=== PATIENT | male | born 1950 | race Two or more races ===

== ENCOUNTER 2023-06-22 11:27 | Emergency (ER) | payer MEDICARE, OTHER ==
[~2023-06-22] VITALS: Ht 170.2 cm; Wt 5.0 kg
[2023-06-22 12:36] LABS: Urine Bacteria NONE SEEN /hpf (None Seen); Urine Blood TRACE /uL (Negative); Urine Clarity Clear (Clear); Urine Color Yellow (Yellow); Urine Hyaline Cast FEW /lpf (0 - 2); Urine Mucus FEW (None Seen); Urine Protein, UAD Negative (Negative); Urine Specific Gravity 1.023 (1.001-1.035); Urine Urobilinogen Normal (Negative); Urine WBC 2 /hpf (0 - 3); Urine pH 5.5 (5.0-8.0)
[2023-06-22 13:04] LABS: Basophils # (auto) 0.1 10 ^3/uL (0-0.2); Basophils % (auto) 1.4 % (0.0-2.0); Eosinophils # (auto) 0.2 10 ^3/uL (0-0.8); Eosinophils % (auto) 4.4 % (0.0-7.0); Hematocrit 47.6 % (41.0-53.0); Hemoglobin 15.9 g/dL (13.5-17.5); Lymphocytes # (auto) 1.6 10 ^3/uL (0.4-5.4); Lymphocytes % (auto) 29.7 % (10.0-50.0); Mean Corpuscular Hemoglobin 29.2 pg (28.0-32.0); Mean Corpuscular Hgb Conc. 33.5 g/dL (32.0-36.0); Mean Corpuscular Volume 87.2 fL (80.0-100.0); Monocytes # (auto) 0.4 10 ^3/uL (0-1.3); Monocytes % (auto) 6.7 % (0.0-12.0); Neutrophils # (auto) 3.2 10 ^3/uL (1.6-8.6); Neutrophils % (auto) 57.8 % (37.0-80.0); Nucleated Red Blood Cells % 0.4 %; Red Blood Cells 5.45 10^6/uL (4.5-5.90); Red Cell Distribution Width 14.2 % (11.8-14.3); White Blood Cell 5.5 10^3/uL (4.4-10.8)
[2023-06-22 13:21] LABS: Alanine Aminotransferase 52 U/L (7-40); Albumin 4.3 g/dL (3.2-4.8); Alkaline Phosphatase 73 U/L (46-116); Anion Gap 4 (5-15); Aspartate Aminotransferase 35 U/L (13-40); BUN/Creatinine Ratio 17.1 (10.0-20.0); Bilirubin, Total 0.8 mg/dL (0.2-1.0); Blood Urea Nitrogen 18 mg/dL (9-23); Calcium 8.9 mg/dL (8.5-10.1); Carbon Dioxide 30 mmol/L (20-30); Chloride 109 mmol/L (98-107); Glucose 96 mg/dL (74-106); Sodium 143 mmol/L (136-145); Total Protein 6.4 g/dL (5.7-8.2)
[2023-06-22 15:17] VITALS: BP 153/96; PULSE 77; RESP 18; TEMP 98.4; O2SAT 96
== END 2023-06-22 15:18 | disposition home or self-care (01) ==
LOC: ER 11:27 → EDBD 11:27 → ER 15:18
DX: R42 Dizziness and giddiness (principal); R55 Syncope and collapse; R51.9 Headache, unspecified
CPT/HCPCS: 36415; 70450; 80053; 81001; 84484; 85025

== ENCOUNTER → 2023-06-29 | Outpatient (CLI) | payer MEDICARE, OTHER ==
[2023-06-29 13:02] LABS: Urine Bacteria None Seen /hpf (None Seen)
[2023-06-29 13:15] LABS: Urine Blood 1+ /uL (Negative); Urine Clarity Clear (Clear); Urine Color Yellow (Yellow); Urine Mucus FEW (None Seen); Urine Protein, UAD TRACE (Negative); Urine Specific Gravity 1.025 (1.001-1.035); Urine Urobilinogen Normal (Negative); Urine WBC <1 /hpf (0 - 3)
[2023-06-29 14:10] LABS: Albumin 4.3 g/dL (3.2-4.8); Bilirubin, Direct 0.4 mg/dL (<0.3)
[2023-06-29 14:11] LABS: Bilirubin, Total 1.2 mg/dL (0.2-1.0); Total Protein 6.9 g/dL (5.7-8.2)
[2023-06-29 14:28] LABS: Hepatitis B Surface Antigen Negative (Negative)
[2023-06-29 14:49] LABS: Hepatitis A Ab IgM Negative; Hepatitis B Core IgM Negative
[2023-06-29 14:50] LABS: Hepatitis C Antibody Negative (Negative)
== END | disposition home or self-care (01) ==
LOC: LAB 12:47
PROVIDERS: ATTEND Internal Medicine
DX: R79.89 Other specified abnormal findings of blood chemistry (principal); R42 Dizziness and giddiness
CPT/HCPCS: 36415; 80074; 80076; 81001

== ENCOUNTER → 2023-08-15 | Outpatient (CLI) | payer MEDICARE, OTHER ==
[2023-08-15 11:21] LABS: Urine Bacteria None Seen /hpf (None Seen)
[2023-08-15 12:25] LABS: Urine Blood 1+ /uL (Negative); Urine Clarity Clear (Clear); Urine Color Yellow (Yellow); Urine Mucus FEW (None Seen); Urine Protein, UAD TRACE (Negative); Urine Specific Gravity 1.025 (1.001-1.035); Urine Urobilinogen Normal (Negative); Urine WBC 1 /hpf (0 - 3); Urine pH 5.5 (5.0-9.0)
== END | disposition home or self-care (01) ==
LOC: LAB 11:16
PROVIDERS: ATTEND Internal Medicine
DX: N28.1 Cyst of kidney, acquired (principal)
CPT/HCPCS: 81001

== ENCOUNTER → 2024-01-02 | Outpatient (CLI) | payer MEDICARE, OTHER ==
[2024-01-02 14:44] LABS: Basophils # (auto) 0 10 ^3/uL (0-0.2); Basophils % (auto) 0.9 % (0.0-2.0); Eosinophils # (auto) 0.3 10 ^3/uL (0-0.8); Eosinophils % (auto) 5.5 % (0.0-7.0); Hemoglobin 16.7 g/dL (13.5-17.5); Lymphocytes # (auto) 1.5 10 ^3/uL (0.4-5.4); Lymphocytes % (auto) 26.7 % (10.0-50.0); Mean Corpuscular Hemoglobin 30.1 pg (28.0-32.0); Mean Corpuscular Hgb Conc. 34.1 g/dL (32.0-36.0); Mean Corpuscular Volume 88.1 fL (80.0-100.0); Monocytes # (auto) 0.4 10 ^3/uL (0-1.3); Monocytes % (auto) 6.7 % (0.0-12.0); Neutrophils # (auto) 3.5 10 ^3/uL (1.6-8.6); Neutrophils % (auto) 60.2 % (37.0-80.0); Nucleated Red Blood Cells % 0.1 %; Platelet Count (auto) 146 10^3/uL (140-450); Red Blood Cells 5.56 10^6/uL (4.5-5.90); Red Cell Distribution Width 13.6 % (11.8-14.3); White Blood Cell 5.7 10^3/uL (4.4-10.8)
[2024-01-02 15:10] LABS: Prostate Specific Antigen 2.38 ng/mL (0.0-4.0)
[2024-01-02 15:11] LABS: Alkaline Phosphatase 70 U/L (46-116)
[2024-01-02 15:12] LABS: Alanine Aminotransferase 28 U/L (7-40); Albumin 4.4 g/dL (3.2-4.8); Anion Gap 8 (5-15); Aspartate Aminotransferase 21 U/L (13-40); BUN/Creatinine Ratio 15.9 (10.0-20.0); Bilirubin, Total 1.2 mg/dL (0.2-1.0); Blood Urea Nitrogen 17 mg/dL (9-23); Carbon Dioxide 25 mmol/L (20-31); Chloride 107 mmol/L (98-107); Glucose 128 mg/dL (74-106); Potassium 3.9 mmol/L (3.5-5.1); Sodium 140 mmol/L (136-145); Total Protein 6.9 g/dL (5.7-8.2)
== END | disposition home or self-care (01) ==
LOC: LAB 14:29
PROVIDERS: ATTEND Internal Medicine
DX: E78.5 Hyperlipidemia, unspecified (principal); R31.29 Other microscopic hematuria; K76.0 Fatty (change of) liver, not elsewhere classified; I51.89 Other ill-defined heart diseases; Z79.899 Other long term (current) drug therapy
CPT/HCPCS: 36415; 80053; 82306; 82607; 84153; 85025

== ENCOUNTER 2024-10-14 09:41 | Outpatient (CLI) | payer MEDICARE, OTHER ==
[2024-10-14 12:02] LABS: Alanine Aminotransferase 33 U/L (7-40); Albumin 4.1 g/dL (3.2-4.8); Alkaline Phosphatase 66 U/L (46-116); Anion Gap 7 (5-15); BUN/Creatinine Ratio 15.7 (10.0-20.0); Bilirubin, Total 0.9 mg/dL (0.2-1.0); Blood Urea Nitrogen 17 mg/dL (9-23); Calcium 9.2 mg/dL (8.7-10.4); Carbon Dioxide 28 mmol/L (20-31); Cholesterol 122 mg/dL (< 200); Glucose 97 mg/dL (74-106); HDL Cholesterol 40 mg/dL (40-59); Potassium 4.4 mmol/L (3.5-5.1); Sodium 142 mmol/L (136-145); Total Protein 6.6 g/dL (5.7-8.2); Triglycerides 78 mg/dL (< 150)
[2024-10-14 12:03] LABS: Chloride 107 mmol/L (98-107)
== END 2024-10-14 17:00 | disposition home or self-care (01) ==
LOC: LAB 09:41
PROVIDERS: ATTEND Internal Medicine
DX: N18.2 Chronic kidney disease, stage 2 (mild) (principal); E78.5 Hyperlipidemia, unspecified; K76.0 Fatty (change of) liver, not elsewhere classified; L40.9 Psoriasis, unspecified; Z12.11 Encounter for screening for malignant neoplasm of colon
CPT/HCPCS: 36415; 80053; 80061; 83036

== ENCOUNTER 2024-10-21 09:15 | Outpatient (CLI) | payer MEDICARE, OTHER | END 2024-10-21 17:00 | disposition home or self-care (01) | LOC: LAB 09:15 | PROVIDERS: ATTEND Internal Medicine | DX: N18.2 Chronic kidney disease, stage 2 (mild) (principal); E78.5 Hyperlipidemia, unspecified; Z12.11 Encounter for screening for malignant neoplasm of colon | CPT/HCPCS: 82270 ==

== ENCOUNTER 2024-11-20 10:47 | Inpatient (IN) | payer MEDICARE, OTHER ==
[~2024-11-20] VITALS: Ht 170.2 cm; Wt 74.5 kg
--- NOTE | 2024-11-20 11:04 | ECG ---
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
--- NOTE | 2024-11-20 12:15 | ED.PDOC ---
HPI (NEURO) HPI Comments This is a 73-year-old male with past medical history of BPH and kidney disease came to the hospital due to dizziness. Per patient he has dizziness since six- month which has worsened since 2 weeks. He describes the dizziness as spinning syndrome, and get worse when he is standing from lying or sitting position. Dizziness also get worse when turning head to the side. He also reports mild headache, blurry vision and right flank pain. He denies loss of consciousness, fall history, head trauma history, chest pain, or shortness of breaths. Hyder-Hallpike maneuver was performed bilaterally at the bedside, the patient has subsequently got mild dizziness which did not improved upon Tyrell maneuver. No nystagmus observed during maneuver. Home medication: Flomax and atorvastatin Chief Complaint: Headache Time Seen by MD: 11:28 Primary Care Provider: TARUN Mode of Arrival: Ambulatory Past Medical History PAST MEDICAL HISTORY: TIA Past Medical History (Other): BPH and kidney cyst Surgical History: Denies all surgeries Family History Family History: Unknown Social History Smoker: Non-Smoker Alcohol: Denies ETOH Use Drugs: Denies Drug Use Lives In: Home Constitutional: denies: chills, diaphoresis, fatigue, fever, malaise, sweats, weakness, others EENTM: reports: blurred vision; denies: double vision, ear bleeding, ear discharge, ear drainage, ear pain, ear ringing, eye pain, eye redness, hearing loss, mouth pain, mouth swelling, nasal discharge, nose bleeding, nose jeanne estion, nose pain, photophobia, tearing, throat pain, throat swelling, voice changes, others Respiratory: denies: cough, hemoptysis, orthopnea, SOB at rest, shortness of breath, SOB with excertion, stridor, wheezing, others Cardiovascular: denies: chest pain, dizzy spells, diaphoresis, Dyspnea on exertion, edema, irregular heart beat, left arm pain, lightheadedness, palpitations, PND, syncope, others Gastrointestinal: denies: abdomen distended, abdominal pain, blood streaked bowels, constipated, diarrhea, dysphagia, difficulty swallowing, hematemesis, melena, nausea, poor appetite, poor fluid intake, rectal bleeding, rectal pain, vomiting, others Genitourinary: denies: burning, dysuria, flank pain, frequency, hematuria, incontinence, penile discharge, penile sore, pain, testicle pain, testicle swe lling, urgency, others Neurological: reports: dizziness, headache; denies: fainting, left sided numbness, left sided weakness, numbness, paresthesia, pre-existing deficit, right sided numbness, right sided weakness, seizure, speech problems, tingling, tremors, weakness, others Musculoskeletal: reports: back pain; denies: gout, joint pain, joint swelling, muscle pain, muscle stiffness, neck pain, others Integumetry: denies: bruises, change in color, change in hair/nails, dryness, laceration, lesions, lumps, rash, wounds, others Allergic/Immunocompromised: denies: Difficulty Healing, Frequent Infections, Hives, Itching, others Hematologic/Lymphatic: denies: anemia, blood clots, easy bleeding, easy bruising, swollen glands, others Endocrine: denies: excessive hunger, excessive sweating, excessive thirst, excessive urination, flushing, intolerance to cold, intolerance to heat, unexplained weight gain, unexplained weight loss, others Psychiatric: denies: anxiety, bipolar disorder, depression, hopeless, panic disorder, schizophrenia, sleepless, suicidal, others Physical Exam General Appearance: No Apparent Distress, Normal HEENT: Normal ENT Inspection, Pharynx Normal, TMs Normal Neck: Full Range of Motion, Non-Tender, Normal, Normal Inspection Respiratory: Chest Non-Tender, Lungs Clear, No Accessory Muscle Use, No Respiratory Distress, Normal Breath Sounds Cardiovascular: No Edema, No JVD, No Murmur, No Gallop, Normal Peripheral Pulses, Regular Rate/Rhythm Breast Exam: Deferred Gastrointestinal: No Organomegaly, Non Tender, No Pulsatile Mass, Normal Bowel Sounds, Soft Genitalia: Deferred Pelvic: Deferred Rectal: Deferred Extremities: No calf tenderness, Normal capillary refill, Normal inspection, Normal range of motion, Non-tender, No pedal edema Neurologic: Alert, 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 Was a procedure done?: No Sedation Sedation?: No Informed consent obtained: No X-Ray, Labs, Meds, VS Vital Signs Date Time Temp Pulse Resp B/P (MAP) Pulse Ox O2 Delivery O2 Flow Rate FiO2 11/20/24 12:32 97.8 73 16 116/71 (86) 96 97.8 11/20/24 12:32 73 16 96 Room Air 11/20/24 10:58 63 11/20/24 10:49 97.6 78 18 128/77 95 97.6 Lab Test 11/20/24 12:24 Range/Units White Blood Count 4.9 4.4-10.8 10^3/uL Red Blood Count 5.47 4.5-5.90 10^6/uL Hemoglobin 16.2 13.5-17.5 g/dL Hematocrit 47.4 41.0-53.0 % Mean Corpuscular Volume 86.6 80.0-100.0 fL Mean Corpuscular Hemoglobin 29.6 28.0-32.0 pg Mean Corpuscular Hemoglobin Concent 34.2 32.0-36.0 g/dL Red Cell Distribution Width 14.0 11.8-14.3 % Platelet Count 154 140-450 10^3/uL Mean Platelet Volume 8.4 6.9-10.8 fL Neutrophils (%) (Auto) 64.9 37.0-80.0 % Lymphocytes (%) (Auto) 24.4 10.0-50.0 % Monocytes (%) (Auto) 6.9 0.0-12.0 % Eosinophils (%) (Auto) 3.1 0.0-7.0 % Basophils (%) (Auto) 0.7 0.0-2.0 % Neutrophils # (Auto) 3.2 1.6-8.6 10 ^3/uL Lymphocytes # (Auto) 1.2 0.4-5.4 10 ^3/uL Monocytes # (Auto) 0.3 0-1.3 10 ^3/uL Eosinophils # (Auto) 0.2 0-0.8 10 ^3/uL Basophils # (Auto) 0 0-0.2 10 ^3/uL Nucleated Red Blood Cells 0.2 % Sodium Level 142 136-145 mmol/L Potassium Level 4.2 3.5-5.1 mmol/L Chloride Level 108 H 98-107 mmol/L Carbon Dioxide Level 27 20-31 mmol/L Anion Gap 7 5-15 Blood Urea Nitrogen 16 9-23 mg/dL Creatinine 1.06 0.700-1.30 mg/dL Glomerular Filtration Rate Calc 74 >90 mL/min BUN/Creatinine Ratio 15.1 10.0-20.0 Serum Glucose 94 74-106 mg/dL Calcium Level 8.8 8.7-10.4 mg/dL Total Bilirubin 0.9 0.2-1.0 mg/dL Aspartate Amino Transferase (AST) 32 13-40 U/L Alanine Aminotransferase (ALT) 65 H 7-40 U/L Alkaline Phosphatase 69 46-116 U/L Total Protein 6.7 5.7-8.2 g/dL Albumin 4.4 3.2-4.8 g/dL Current Medications Medications (Trade) Dose Ordered Sig/Jill Route Start Time Stop Time Status Last Admin Meclizine HCl (Antivert Tablet) 25 mg ONCE ONCE PO 11/20/24 12:00 11/20/24 12:04 DC 11/20/24 12:25 Ibuprofen (Motrin Tablet) 400 mg ONCE ONCE PO 11/20/24 12:00 11/20/24 12:04 DC 11/20/24 12:25 X-Ray, Labs, Meds, VS Comment CT scan shows,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 Patient was given meclizine Patient is feeling a little better but still complained of dizziness. The patient will be admitted for further workup and possible MRI. Time of 1ST Reevaluation: 12:00 Reevaluation 1ST: Unchanged Time of 2ND Reevaluation: 15:50 Reevaluation 2ND: Unchanged Patient Education/Counseling: Diagnosis, Treatment, Prognosis, Need For Follow Up, Other Family Education/Counseling: Diagnosis, Treatment, Prognosis, Need For Follow Up, Other Departure 1 Departure Time of Disposition: 15:55 Impression: Primary Impression: Autonomic dysfunction Additional Impression: BPPV (benign paroxysmal positional vertigo) Disposition: 09 ADMITTED INPATIENT Condition: Guarded Critical Care Note Critical Care Time?: No Stability Stability form required: No Heart Score Heart Score: Heart Score Response (Comments) Value History N/A 0 EKG Normal 0 Age N/A 0 Risk Factors N/A 0 Troponin N/A 0 Total 0 MATT CRANDALL RESMERLE Nov 20, 2024 12:15
[2024-11-20] MEDS: MECLIZINE HCL 25 MG TAB PO ONE (12:25)
[2024-11-20] MEDS: IBUPROFEN 400 MG TAB PO ONE (12:25)
[2024-11-20 12:38] LABS: Hematocrit 47.4 % (41.0-53.0); Hemoglobin 16.2 g/dL (13.5-17.5); Mean Corpuscular Hemoglobin 29.6 pg (28.0-32.0); Mean Corpuscular Volume 86.6 fL (80.0-100.0); Nucleated Red Blood Cells % 0.2 %
--- NOTE | 2024-11-20 12:43 | DVH ---
EXAM: CT HEAD WITHOUT CONTRAST INDICATION: dizziness TECHNIQUE: CT of the head without intravenous contrast. Coronal and sagittal reformatted images are s ubmitted. Radiation Dose : 1. Head: CT Dose: CTDI volume is 55.8 mGy. Dose-length product is 1098.7 mGy*cm The dose indicators for CT are the volume Computed Tomography (CT) Dose Index (CTDIvol) and the Dose Length Product (DLP), and are measured in units of mGy and mGy-cm, respectively. These indicators are not patient dose, but values generated from the CT scanner acquisition factors. The report includes radiation exposure data for exposures received during this examination. All CT scans at this medical facility are performed using dose modulation techniques as appropriate to a performed exam including the following: Automated exposure control was utilized; adjustment of the MA and/or KV according to patient size; and use of iterative reconstruction technique. COMPARISON: CT HEAD WITHOUT CONTRAST on DOS: 06/22/23 FINDINGS: There is no evidence of acute intracranial hemorrhage, extra-axial collection, mass effect, midline s hift, herniation or hydrocephalus. Age-indeterminate lacunar infarcts in the left basal ganglia and thalamus. The ventricles, sulci and cisterns are age appropriate. The regan-white differentiation is intact. Mucosal thickening in the maxillary sinuses. Mastoid air cells are clear. No depressed calvarial fracture. The surrounding soft tissues are unremarkable. IMPRESSION: 1. 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 These may be chronic. If there is clinical concern for acute infarct, brain MRI recommended without intravenous contrast. 2. No evidence of acute hemorrhage or mass effect. HS:Y
[2024-11-20 12:52] LABS: Alanine Aminotransferase 65 U/L (7-40); Albumin 4.4 g/dL (3.2-4.8); Alkaline Phosphatase 69 U/L (46-116); Anion Gap 7 (5-15); BUN/Creatinine Ratio 15.1 (10.0-20.0); Bilirubin, Total 0.9 mg/dL (0.2-1.0); Blood Urea Nitrogen 16 mg/dL (9-23); Calcium 8.8 mg/dL (8.7-10.4); Carbon Dioxide 27 mmol/L (20-31); Chloride 108 mmol/L (98-107); Glucose 94 mg/dL (74-106); Potassium 4.2 mmol/L (3.5-5.1); Sodium 142 mmol/L (136-145); Total Protein 6.7 g/dL (5.7-8.2)
[2024-11-20] MEDS ORDERED: MECLIZINE HCL 25 MG TAB PO PRN (19:30)
[2024-11-20] MEDS ORDERED: ACETAMINOPHEN 325 MG TAB PO PRN (19:30)
[2024-11-20] MEDS ORDERED: ONDANSETRON HCL 4 MG/2 ML VIAL IV PRN (19:30)
[2024-11-20 22:00] VITALS: BP 134/79; PULSE 55; RESP 18; TEMP 98.5; O2SAT 97
[2024-11-20 22:09] VITALS: BP 134/79; PULSE 55; RESP 18; TEMP 98.5; O2SAT 97
--- NOTE | 2024-11-20 22:13 | DVHHP2 ---
History of Present Illness Reason for Visit: Dizziness History of Present Illness 73-year-old male presents for evaluation of dizziness. Patient endorses a three-month history of intermittent dizziness. He states that over the past three days it has become more constant with associated blurred vision. Denies headache. No cardiac or respiratory complaints. Past Medical History TIA, BPH Past Surgical History Denies Family History Noncontributory Smoke: No ALCOHOL: none Drugs: None Lives: with Family Review of Systems Review of Systems Review of systems are currently negative otherwise addressed in HPI. Allergies: Coded Allergies: NO KNOWN ALLERGIES (Unverified , 06/22/23) Medications Current Medications Medications Dose Ordered Sig/Jill Route Start Time Stop Time Status Last Admin Dose Admin Meclizine HCl 25 mg Q6HPRN PRN PO 11/20/24 19:30 Ondansetron HCl 4 mg Q4HP PRN IV 11/20/24 19:30 Enoxaparin Sodium 40 mg DAILY SC 11/21/24 10:00 Acetaminophen 650 mg Q6HP PRN PO 11/20/24 19:30 Exam Vital Signs Vital Signs Date Time Temp Pulse Resp B/P (MAP) Pulse Ox O2 Delivery O2 Flow Rate FiO2 11/20/24 21:31 97.4 60 18 138/77 (97) 98 97.4 11/20/24 12:32 Room Air Exam Gen: 73-year-old male in mild distress Skin: Warm, dry, normal color and texture, no rash. HEENT: Normocephalic atraumatic, mucous membranes moist and pink. Neck: Cervical and supraclavicular nodes normal without enlargement, trachea is midline, thyroid gland is normal without masses. Pulmonary: Clear to auscultation and percussion bilaterally. Cardiac: Regular rate and rhythm. No murmur Abdomen: Soft, nontender, nondistended, bowel sounds present all 4 quadrants, no guarding, no rigidity, no organomegaly. Extremities: No cyanosis, clubbing, no edema Neuro: Cranial nerves II through XII grossly intact, normal affect and speech, no focal motor deficits. Labs/Xrays ORDERING PHYSICIAN: MATT CRANDALL PROCEDURE(s): HWOCT - HEAD WITHOUT CONTRAST REASON: dizziness ORDER NUMBER(s): [id number], ACCESSION NUMBER(s): [id number] EXAM: CT HEAD WITHOUT CONTRAST INDICATION: dizziness TECHNIQUE: CT of the head without intravenous contrast. Coronal and sagittal reformatted images are submitted. Radiation Dose : 1. Head: CT Dose: CTDI volume is 55.8 mGy. Dose-length product is 1098.7 mGy*cm The dose indicators for CT are the volume Computed Tomography (CT) Dose Index (CTDIvol) and the Dose Length Product (DLP), and are measured in units of mGy and mGy-cm, respectively. These indicators are not patient dose, but values generated from the CT scanner acquisition factors. The report includes radiation exposure data for exposures received during this examination. All CT scans at this medical facility are performed using dose modulation techniques as appropriate to a performed exam including the following: Automated exposure control was utilized; adjustment of the MA and/or KV according to patient size; and use of iterative reconstruction technique. COMPARISON: CT HEAD WITHOUT CONTRAST on DOS: 06/22/23 FINDINGS: There is no evidence of acute intracranial hemorrhage, extra-axial collection, mass effect, midline shift, herniation or hydrocephalus. Age-indeterminate lacunar infarcts in the left basal ganglia and thalamus. The ventricles, sulci and cisterns are age appropriate. The regan-white differentiation is intact. Mucosal thickening in the maxillary sinuses. Mastoid air cells are clear. No depressed calvarial fracture. The surrounding soft tissues are unremarkable. IMPRESSION: 1. 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 These may be chronic. If there is clinical concern for acute infarct, brain MRI recommended without intravenous contrast. 2. No evidence of acute hemorrhage or mass effect. HS:Y Labs Test 11/20/24 12:24 Range/Units White Blood Count 4.9 4.4-10.8 10^3/uL Red Blood Count 5.47 4.5-5.90 10^6/uL Hemoglobin 16.2 13.5-17.5 g/dL Hematocrit 47.4 41.0-53.0 % Mean Corpuscular Volume 86.6 80.0-100.0 fL Mean Corpuscular Hemoglobin 29.6 28.0-32.0 pg Mean Corpuscular Hemoglobin Concent 34.2 32.0-36.0 g/dL Red Cell Distribution Width 14.0 11.8-14.3 % Platelet Count 154 140-450 10^3/uL Mean Platelet Volume 8.4 6.9-10.8 fL Neutrophils (%) (Auto) 64.9 37.0-80.0 % Lymphocytes (%) (Auto) 24.4 10.0-50.0 % Monocytes (%) (Auto) 6.9 0.0-12.0 % Eosinophils (%) (Auto) 3.1 0.0-7.0 % Basophils (%) (Auto) 0.7 0.0-2.0 % Neutrophils # (Auto) 3.2 1.6-8.6 10 ^3/uL Lymphocytes # (Auto) 1.2 0.4-5.4 10 ^3/uL Monocytes # (Auto) 0.3 0-1.3 10 ^3/uL Eosinophils # (Auto) 0.2 0-0.8 10 ^3/uL Basophils # (Auto) 0 0-0.2 10 ^3/uL Nucleated Red Blood Cells 0.2 % Sodium Level 142 136-145 mmol/L Potassium Level 4.2 3.5-5.1 mmol/L Chloride Level 108 H 98-107 mmol/L Carbon Dioxide Level 27 20-31 mmol/L Anion Gap 7 5-15 Blood Urea Nitrogen 16 9-23 mg/dL Creatinine 1.06 0.700-1.30 mg/dL Glomerular Filtration Rate Calc 74 >90 mL/min BUN/Creatinine Ratio 15.1 10.0-20.0 Serum Glucose 94 74-106 mg/dL Calcium Level 8.8 8.7-10.4 mg/dL Total Bilirubin 0.9 0.2-1.0 mg/dL Aspartate Amino Transferase (AST) 32 13-40 U/L Alanine Aminotransferase (ALT) 65 H 7-40 U/L Alkaline Phosphatase 69 46-116 U/L Total Protein 6.7 5.7-8.2 g/dL Albumin 4.4 3.2-4.8 g/dL SEPSIS Sepsis Screen Date sepsis recognized/suspect: Nov 20, 2024 Time Sepsis recognized/suspect: 2148 Recent Procedure: No On Antibiotic Therapy: No Respiratory Rate >20: No Heart Rate >90: No Temp<36 C (96.8 F) or >38.3 C: No SBP <90 or MAP <65 mmHG: No New Acute Mental Status Change: No Is the patient on CPAP, BIPAP,: No Physician Orders Meclizine Tablet (Antivert Tablet) (11/20/24 19:30) Brain Head Wo Contrast (11/20/24 19:21) Urinalysis (11/20/24 19:21) Admit (11/20/24 19:21) Ondansetron Hcl (Zofran) (11/20/24 19:30) Enoxaparin Sodium (Lovenox) (11/21/24 10:00) Cardiac Diet-2gna,Lofat,Lochol (11/21/24 Breakfast) Condition: Stable (11/20/24 19:21) Acetaminophen Tablet (Tylenol Tablet) (11/20/24 19:30) Bedrest With Bathroom Privileg (11/20/24 19:21) Vital Signs Date Time Temp Pulse Resp B/P (MAP) Pulse Ox O2 Delivery O2 Flow Rate FiO2 11/20/24 21:31 97.4 60 18 138/77 (97) 98 97.4 11/20/24 18:18 97.8 71 16 115/72 (86) 94 97.8 Laboratory Tests Test 11/20/24 12:24 White Blood Count 4.9 10^3/uL (4.4-10.8) Medications Medications Dose Ordered Sig/Jill Route Start Time Stop Time Status Last Admin Dose Admin Ibuprofen 400 mg ONCE ONCE PO 11/20/24 12:00 11/20/24 12:04 DC 11/20/24 12:25 400 MG Meclizine HCl 25 mg ONCE ONCE PO 11/20/24 12:00 11/20/24 12:04 DC 11/20/24 12:25 25 MG Assessment/Plan Assessment/Plan Assessment Dizziness Abnormal CT finding, rule out CVA History of TIA Plan Admit the patient to [facility] to the hospitalist MRI of the brain pending Meclizine trial Continue treatment per orders. Plan discussed with: Patient My Orders Orders - SANTA GONZALEZ Procedure Category Date Status Time Meclizine Tablet PHA 11/20/24 In Process (Antivert Tablet) 19:30 Brain Head Wo Contrast MRI 11/20/24 Logged 19:21 Urinalysis LAB 11/20/24 Logged 19:21 Admit ADMIT 11/20/24 Transmitted 19:21 Ondansetron Hcl PHA 11/20/24 In Process (Zofran) 19:30 Enoxaparin Sodium PHA 11/21/24 In Process (Lovenox) 10:00 Cardiac DIET 11/21/24 Transmitted Diet-2gna,Lofat,Lochol Breakfast Condition: Stable REBECCA 11/20/24 In Process 19:21 Acetaminophen Tablet PHA 11/20/24 In Process (Tylenol Tablet) 19:30 Bedrest With Bathroom REBECCA 11/20/24 In Process Privileg 19:21 Date of Service: Nov 20, 2024 Billing Provider: SANTA GONZALEZ Common Visit Codes: [id number] INP/OBS CARE (MOD) SANTA GONZALEZ Nov 20, 2024 22:13
[2024-11-20 22:42] LABS: Triglycerides 133 mg/dL (< 150)
[2024-11-20 22:44] LABS: Cholesterol 121 mg/dL (< 200); HDL Cholesterol 41 mg/dL (40-59)
[2024-11-20] MEDS ORDERED: ATOR10TA52 PO (23:27)
[2024-11-20] MEDS ORDERED: ALFU1TAB15 PO (23:27)
[2024-11-20] MEDS ORDERED: DIA5T PO (23:46)
[2024-11-21] VITALS (9 sets, daily range): BP systolic 112–138; BP diastolic 73–86; PULSE 15–68; RESP 15–20; TEMP 96.9–98; O2SAT 96–99
[2024-11-21] MEDS: ENOXAPARIN SOD 40 MG/0.4 ML SYRINGE SC SCH (10:00)
[2024-11-21 11:08] LABS: Urine Protein, UAD Negative (Negative)
--- NOTE | 2024-11-21 13:14 | DVHPN2 ---
Reviewed: Care Plan, H&P, Labs, Medications, Previous Orders, Radiology Changes from previous H/P or p: No Changes Objective Vitals Vital Signs Date Time Temp Pulse Resp B/P (MAP) Pulse Ox O2 Delivery O2 Flow Rate FiO2 11/21/24 08:25 97.7 57 20 115/74 (88) 98 97.7 11/21/24 08:00 Room Air* 0 21 Intake/Output Intake and Output 11/21/24 07:00 Intake Total 600 ml Balance 600 ml Intake Oral 600 ml # Voids 3 Medications Current Medications Medications Dose Ordered Sig/Jill Route Start Time Stop Time Status Last Admin Dose Admin Meclizine HCl 25 mg Q6HPRN PRN PO 11/20/24 19:30 Ondansetron HCl 4 mg Q4HP PRN IV 11/20/24 19:30 Enoxaparin Sodium 40 mg DAILY SC 11/21/24 10:00 Acetaminophen 650 mg Q6HP PRN PO 11/20/24 19:30 Laboratory Results Laboratory Tests 11/20/24 12:24 Urinalysis Test 11/21/24 10:00 Urine Color Light-yellow (Yellow) Urine Clarity Clear (Clear) Urine pH 5.0 (5.0-9.0) Urine Specific [place] 1.018 (1.001-1.035) Urine Protein Negative (Negative) Urine Ketones Negative (Negative) Urine Blood Trace /uL (Negative) H Urine Nitrite Negative (Negative) Urine Bilirubin Negative (Negative) Urine Urobilinogen Normal mg/dL (Negative) Urine Leukocyte Esterase Negative /uL (Negative) Urine RBC 1 /hpf (0 - 3) Urine Microscopic WBC 1 /HPF (0-3) Urine Squamous Epithelial Cells None seen /hpf (<5) Urine Bacteria None seen /hpf (None Seen) Urine Glucose Normal mg/dL (Normal) Labs and/or images reviewed: Labs reviewed by me, Image(s) reviewed by me Assessment/Plan Assessment/Plan Dizziness Rule out TIA . CT head negative, Neurology consult for History of TIA BPH Time spent 50 minutes Plan discussed with: Patient My Orders Orders - MAY PICKETT MD Procedure Category Date Status Time * Neurology Consult CONS 11/21/24 Verified 13:09 Date of Service: Nov 21, 2024 Billing Provider: AMY PICKETT MD Common Visit Codes: [id number] INP/OBS CARE(HIGH) AMY PICKETT MD Nov 21, 2024 13:14
[2024-11-21] MEDS: LORazepam 2MG/ML-1ML VIAL IV ONE (15:30)
--- NOTE | 2024-11-21 16:22 | DVH ---
PROCEDURE: MRI BRAIN HEAD WO CONTRAST Indication: Rule out CVA COMPARISON: None TECHNIQUE: Multiplanar multisequence images of the brain are obtained. FINDINGS: There is no abnormal diffusion restriction. There are mild periventricular and subcortical white g[place] er T2 and FLAIR hyperintense changes. There is no intracranial hemorrhage. No extra-axial fluid colle ction, mass effect or midline shift. The ventricles are midline and normal in size. The cisterns are patent. Normal intracranial flow voids are preserved. No abnormal susceptibility signal. Mild global cerebral volume loss. Small bilateral mastoid effusions. Right maxillary mucosal sinus retention cyst/ polyp measuring 2.5 cm and left measuring 2.9 cm. The visualized orbits are unremarkable. IMPRESSION: No acute cerebrovascular ischemia. Mild global cerebral volume loss. Mild chronic microvascular ischemic changes. Paranasal sinus disease
[2024-11-22 01:00] VITALS: BP 119/79; PULSE 16; PULSE 93; TEMP 98.5; O2SAT 96
[2024-11-22 05:00] VITALS: BP_SYST 101; BP_SYST 109; BP_SYST 113; BP_DIAS 64; BP_DIAS 73; BP_DIAS 79; PULSE 15; PULSE 65; TEMP 98.1; O2SAT 98
[2024-11-22 08:00] VITALS: PULSE 58; RESP 18; O2SAT 100
[2024-11-22 08:42] VITALS: BP 105/67; PULSE 58; RESP 18; TEMP 97.4; O2SAT 100
--- NOTE | 2024-11-22 11:07 | DVHPN2 ---
Reviewed: Care Plan, H&P, Labs, Medications, Previous Orders, Radiology Changes from previous H/P or p: No Changes Objective Vitals Vital Signs Date Time Temp Pulse Resp B/P (MAP) Pulse Ox O2 Delivery O2 Flow Rate FiO2 11/22/24 08:42 97.4 58 18 105/67 (80) 100 97.4 11/22/24 08:00 Room Air* 0 21 Intake/Output Intake and Output 11/22/24 07:00 Intake Total 1105 ml Output Total 100 ml Balance 1005 ml Intake Oral 1105 ml Output Urine Total 100 ml # Voids 8 # Bowel Movements 2 Medications Current Medications Medications Dose Ordered Sig/Jill Route Start Time Stop Time Status Last Admin Dose Admin Meclizine HCl 25 mg Q6HPRN PRN PO 11/20/24 19:30 Ondansetron HCl 4 mg Q4HP PRN IV 11/20/24 19:30 Enoxaparin Sodium 40 mg DAILY SC 11/21/24 10:00 Acetaminophen 650 mg Q6HP PRN PO 11/20/24 19:30 Laboratory Results Laboratory Tests 11/20/24 12:24 Urinalysis Test 11/21/24 10:00 Urine Color Light-yellow (Yellow) Urine Clarity Clear (Clear) Urine pH 5.0 (5.0-9.0) Urine Specific [place] 1.018 (1.001-1.035) Urine Protein Negative (Negative) Urine Ketones Negative (Negative) Urine Blood Trace /uL (Negative) H Urine Nitrite Negative (Negative) Urine Bilirubin Negative (Negative) Urine Urobilinogen Normal mg/dL (Negative) Urine Leukocyte Esterase Negative /uL (Negative) Urine RBC 1 /hpf (0 - 3) Urine Microscopic WBC 1 /HPF (0-3) Urine Squamous Epithelial Cells None seen /hpf (<5) Urine Bacteria None seen /hpf (None Seen) Urine Glucose Normal mg/dL (Normal) Labs and/or images reviewed: Labs reviewed by me, Image(s) reviewed by me Assessment/Plan Assessment/Plan Dizziness Rule out TIA . CT head negative, MRI brain negative Neurology consult for pending History of TIA BPH Patient feels better and requesting to be discharged home and he says he will follow up with the neurologist as an outpatient Time spent 50 minutes Plan discussed with: Patient My Orders Orders - AMY PICKETT MD Procedure Category Date Status Time * Neurology Consult CONS 8/28/25 Transmitted 13:09 Date of Service: Nov 22, 2024 Billing Provider: AMY PICKETT MD Common Visit Codes: [id number] INP/OBS CARE(HIGH) AMY PICKETT MD Nov 22, 2024 11:07
--- NOTE | 2024-11-22 11:12 | DVHDS2 ---
Discharge Summary Date of Admission Nov 20, 2024 at 19:21 Date of Discharge: Nov 22, 2024 Admitting Diagnosis Dizziness Wounds: None Labs/Diagnostic Data: Laboratory Results Test 11/21/24 10:00 11/20/24 12:24 Urine Color Light-yellow (Yellow) Urine Clarity Clear (Clear) Urine pH 5.0 (5.0-9.0) Urine Specific [place] 1.018 (1.001-1.035) Urine Protein Negative (Negative) Urine Ketones Negative (Negative) Urine Blood Trace /uL (Negative) Urine Nitrite Negative (Negative) Urine Bilirubin Negative (Negative) Urine Urobilinogen Normal mg/dL (Negative) Urine Leukocyte Esterase Negative /uL (Negative) Urine RBC 1 /hpf (0 - 3) Urine Microscopic WBC 1 /HPF (0-3) Urine Squamous Epithelial Cells None seen /hpf (<5) Urine Bacteria None seen /hpf (None Seen) Urine Glucose Normal mg/dL (Normal) White Blood Count 4.9 10^3/uL (4.4-10.8) Red Blood Count 5.47 10^6/uL (4.5-5.90) Hemoglobin 16.2 g/dL (13.5-17.5) Hematocrit 47.4 % (41.0-53.0) Mean Corpuscular Volume 86.6 fL (80.0-100.0) Mean Corpuscular Hemoglobin 29.6 pg (28.0-32.0) Mean Corpuscular Hemoglobin Concent 34.2 g/dL (32.0-36.0) Red Cell Distribution Width 14.0 % (11.8-14.3) Platelet Count 154 10^3/uL (140-450) Mean Platelet Volume 8.4 fL (6.9-10.8) Neutrophils (%) (Auto) 64.9 % (37.0-80.0) Lymphocytes (%) (Auto) 24.4 % (10.0-50.0) Monocytes (%) (Auto) 6.9 % (0.0-12.0) Eosinophils (%) (Auto) 3.1 % (0.0-7.0) Basophils (%) (Auto) 0.7 % (0.0-2.0) Neutrophils # (Auto) 3.2 10 ^3/uL (1.6-8.6) Lymphocytes # (Auto) 1.2 10 ^3/uL (0.4-5.4) Monocytes # (Auto) 0.3 10 ^3/uL (0-1.3) Eosinophils # (Auto) 0.2 10 ^3/uL (0-0.8) Basophils # (Auto) 0 10 ^3/uL (0-0.2) Nucleated Red Blood Cells 0.2 % Sodium Level 142 mmol/L (136-145) Potassium Level 4.2 mmol/L (3.5-5.1) Chloride Level 108 mmol/L (98-107) Carbon Dioxide Level 27 mmol/L (20-31) Anion Gap 7 (5-15) Blood Urea Nitrogen 16 mg/dL (9-23) Creatinine 1.06 mg/dL (0.700-1.30) Glomerular Filtration Rate Calc 74 mL/min (>90) BUN/Creatinine Ratio 15.1 (10.0-20.0) Serum Glucose 94 mg/dL (74-106) Calcium Level 8.8 mg/dL (8.7-10.4) Total Bilirubin 0.9 mg/dL (0.2-1.0) Aspartate Amino Transferase (AST) 32 U/L (13-40) Alanine Aminotransferase (ALT) 65 U/L (7-40) Alkaline Phosphatase 69 U/L (46-116) Total Protein 6.7 g/dL (5.7-8.2) Albumin 4.4 g/dL (3.2-4.8) Triglycerides Level 133 mg/dL (< 150) Cholesterol Level 121 mg/dL (< 200) LDL Cholesterol 68 mg/dL (< 100) HDL Cholesterol 41 mg/dL (40-59) Thyroid Stimulating Hormone (TSH) 0.91 uIU/mL (0.55-4.78) Other Laboratory Tests 11/20/24 12:24 Brief Hx & Hospital Course: 73 year old male with a history of TIA BPH came in complaining of dizziness and admitted to the hospital. All labs were normal CT head negative MRI brain negative patient is ambulating without any difficulty. Neurology consult placed but patient wants to be discharged home and does not want to wait with the Neurology consult. Discharged home on Antivert and he will follow up with the neurologist as an outpatient Consults/Reason for consult Neurology consult pending but patient wants to be discharged home Operations or Procedures CT head MRI brain Condition at Discharge: Fair Final Diagnosis/Problems List Dizziness Rule out TIA . CT head negative, MRI brain negative Neurology consult for pending History of TIA BPH Discharge Disposition: Home Discharge Instruct/Medications Diet: Regular Activity: Light activity Follow Up/Referral: Follow up primary Dr in one week Follow up with the Neurology Dr. Guzman in two weeks Medications: Antivert Transmitted to [facility] Scheduled Alfuzosin Hydrochloride (Alfuzosin Hcl Er), 10 MG PO DAILY, (Reported) Atorvastatin Calcium (Atorvastatin Calcium), 10 MG PO DAILY, (Reported) Diazepam (Valium Tablet), 1 TAB PO TIDP, (Reported) 39 (Time taken for discharge summary 39 minutes) Discharge Statement: "Patient was advised to return to the ER or call 911 if any headaches, dizziness, shortness of breath, chest pain, abdominal pain, bleeding, fevers, or worsening of medical condition. Patient was counseled about treatment plan, medications, possible side effects, patientverbalized understanding. All questions were answered to the best of my ability. This discharge took greater then 30 minutes in planning, reviewing documentation, counseling the patient, and discussing with other team members." ASSESSMENT ASSESSMENT Hospital Course Improved. Assessment Dizziness Rule out TIA . CT head negative, MRI brain negative Neurology consult for pending History of TIA BPH Date of Service: Nov 22, 2024 Billing Provider: AMY PICKETT MD Common Visit Codes: 56675-VDX/OBS DISCH DAY >30min AMY PICKETT MD Nov 22, 2024 11:12
[2024-11-22] MEDS ORDERED: MECL25CH85 PO (12:08)
[2024-11-22 12:27] VITALS: BP 127/71; PULSE 66; RESP 18; TEMP 98; O2SAT 95
== END 2024-11-22 13:00 | disposition home or self-care (01) | DRG 69 ==
LOC: ER 10:47 → OVERFLOW 19:21 → WEST WING 21:58
PROVIDERS: ADMIT Family Medicine; ATTEND Family Medicine
DX: G45.9 Transient cerebral ischemic attack, unspecified (principal); N40.0 Benign prostatic hyperplasia without lower urinary tract symptoms; G90.89 Other disorders of autonomic nervous system; H81.13 Benign paroxysmal vertigo, bilateral; Z86.73 Personal history of transient ischemic attack (TIA), and cerebral infarction without residual deficits; Z79.899 Other long term (current) drug therapy
CPT/HCPCS: 36415; 70450; 70551; 80053; 80061; 81001; 84443; 85025; 93005; G0378

== ENCOUNTER 2025-01-09 10:46 | Outpatient (CLI) | payer MEDICARE, OTHER ==
[~2025-01-09 10:46] MED LIST: ALFU1TAB15 PO; ATOR10TA52 PO; DIA5T PO; MECL25CH85 PO
[2025-01-09 11:24] LABS: Alanine Aminotransferase 30.0 U/L (7-40); Albumin 4.0 g/dL (3.2-4.8); Alkaline Phosphatase 65.0 U/L (46-116); Bilirubin, Direct 0.2 mg/dL (<0.3); Bilirubin, Total 0.8 mg/dL (0.2-1.0); Total Protein 6.7 g/dL (5.7-8.2)
== END 2025-01-09 17:00 | disposition home or self-care (01) ==
LOC: LAB 10:46
PROVIDERS: ATTEND Internal Medicine
DX: N40.0 Benign prostatic hyperplasia without lower urinary tract symptoms (principal); R79.89 Other specified abnormal findings of blood chemistry; Z79.899 Other long term (current) drug therapy
CPT/HCPCS: 36415; 80076; 82306; 84153

== ENCOUNTER 2025-03-21 12:22 | Emergency (ER) | payer MEDICARE, OTHER ==
[~2025-03-21] VITALS: Ht 170.2 cm; Wt 76.4 kg
[2025-03-21 12:32] VITALS: BP 146/83; PULSE 65; RESP 16; TEMP 98; O2SAT 96
--- NOTE | 2025-03-21 13:43 | ED.PDOC ---
General HPI Comments A 74 YEAR OLD MALE PRESENTS TO THE ED WITH COMPLAINT OF HEMATURIA. PATIENT STATES HE HAS BEEN EXPERIENCING HEMATURIA AND LOWER BACK PAIN FOR THE PAST 2 DAYS. PATIENT NOTES HE HAS A HISTORY OF CHRONIC LOWER BACK PAIN AND STATES HIS PRIMARY CONCERN IS THE BLOOD IN HIS URINE. PATIENT DENIES DYSURIA, FLANK PAIN, SADDLE ANESTHESIA, URINARY INCONTINENCE, BOWEL INCONTINENCE, FEVER, CHILLS, SHORTNESS OF BREATH, CHEST PAIN, ABDOMINAL PAIN, NAUSEA, VOMITING, HEADACHE, OR OTHER COMPLAINTS. NO OTHER SYMPTOMS OR MODIFYING FACTORS AT THIS TIME. PATIENT IS ALERT, ORIENTED X 4, AND HAS STEADY GAIT. Chief Complaint: Urinary Time Seen by MD: 12:33 Primary Care Provider: TARUN Reviewed notes: Nurses Notes, Medications, Allergies Allergies: Coded Allergies: NO KNOWN ALLERGIES (Unverified , 06/22/23) Home Meds Active Scripts Ciprofloxacin Hcl (Cipro) 500 Mg Tab, 1 TAB PO BID, #20 TAB Prov:NITESH LOTT 03/21/25 Meclizine HCl (Antivert) 25 Mg Chw, 25 MG PO TID PRN, #30 TAB.CHEW Prov:AMY PICKETT MD 11/22/24 Reported Medications Diazepam (VALIUM TABLET) 5 Mg Tb, 1 TAB PO TIDP, #90 TAB 11/20/24 Alfuzosin Hydrochloride (ALFUZOSIN HCL ER) 10 Mg Tab, 10 MG PO DAILY, TAB 11/20/24 Atorvastatin Calcium (ATORVASTATIN CALCIUM) 10 Mg Tab, 10 MG PO DAILY, TAB 11/20/24 Information Source: Patient Mode of Arrival: Ambulatory Severity: Moderate Inability to void: None Timing: Days Duration: Since onset, Days Prehospital treatment: None Onset: Spontaneous Symptoms: Hematuria History of: None Location: None Penile discharge: None Modifying factors: None associated signs and symptoms: Dysuria, Hematuria Past Medical History PAST MEDICAL HISTORY: TIA Surgical History: Denies all surgeries Family History Family History: Reviewed,noncontributory to illness Social History Smoker: Non-Smoker Alcohol: Denies ETOH Use Drugs: Denies Drug Use Lives In: Home Constitutional: denies: chills, diaphoresis, fatigue, fever, malaise, sweats, weakness, others EENTM: denies: blurred vision, double vision, ear bleeding, ear discharge, ear drainage, ear pain, ear ringing, eye pain, eye redness, hearing loss, mouth pain, mouth swelling, nasal discharge, nose bleeding, nose congestion, nose pain, photophobia, tearing, throat pain, throat swelling, voice changes, others Respiratory: denies: cough, hemoptysis, orthopnea, SOB at rest, shortness of breath, SOB with excertion, stridor, wheezing, others Cardiovascular: denies: chest pain, dizzy spells, diaphoresis, Dyspnea on exertion, edema, irregular heart beat, left arm pain, lightheadedness, palpitations, PND, syncope, others Gastrointestinal: denies: abdomen distended, abdominal pain, blood streaked bowels, constipated, diarrhea, dysphagia, difficulty swallowing, hematemesis, melena, nausea, poor appetite, poor fluid intake, rectal bleeding, rectal pain, vomiting, others Genitourinary: reports: burning, dysuria, hematuria; denies: flank pain, frequency, incontinence, penile discharge, penile sore, pain, testicle pain, testicle swelling, urgency, others Neurological: denies: dizziness, fainting, headache, left sided numbness, left sided weakness, numbness, paresthesia, pre-existing deficit, right sided numbness, right sided weakness, seizure, speech problems, tingling, tremors, weakness, others Musculoskeletal: reports: back pain; denies: gout, joint pain, joint swelling, muscle pain, muscle stiffness, neck pain, others Integumetry: denies: bruises, change in color, change in hair/nails, dryness, laceration, lesions, lumps, rash, wounds, others Allergic/Immunocompromised: denies: Difficulty Healing, Frequent Infections, Hives, Itching, others Hematologic/Lymphatic: denies: anemia, blood clots, easy bleeding, easy bruising, swollen glands, others Endocrine: denies: excessive hunger, excessive sweating, excessive thirst, excessive urination, flushing, intolerance to cold, intolerance to heat, unexplained weight gain, unexplained weight loss, others Psychiatric: denies: anxiety, bipolar disorder, depression, hopeless, panic disorder, schizophrenia, sleepless, suicidal, others All Other Systems: Reviewed and Negative Physical Exam General Appearance: No Apparent Distress, Normal HEENT: Normal ENT Inspection, PERRL/EOMI, Pharynx Normal, TMs Normal Neck: Full Range of Motion, Non-Tender, Normal, Normal Inspection Respiratory: Chest Non-Tender, Lungs Clear, No Accessory Muscle Use, No Respiratory Distress, Normal Breath Sounds Cardiovascular: No Edema, No JVD, No Murmur, No Gallop, Normal Peripheral Pulses, Regular Rate/Rhythm Breast Exam: Deferred Gastrointestinal: No Organomegaly, Non Tender, No Pulsatile Mass, Normal Bowel Sounds, Soft Genitalia: Deferred Pelvic: Deferred Rectal: Deferred Extremities: No calf tenderness, Normal capillary refill, Normal inspection, Normal range of motion, Non-tender, No pedal edema Musculoskeletal : Apperance: Normal Neurologic: Alert, product trainer II-XII nml as Tested, No Motor Deficits, Normal Affect, Normal Mood, No Sensory Deficits Cerebellar Function: Normal Reflexes: Normal Skin: Dry, Normal Color, Warm Peripheral Pulses: 2+ carotid (R), 2+ carotid (L) Lymphatic: No Adenopathy Was a procedure done? Was a procedure done?: No Differential Diagnosis Kidney stone (Female): N/A Kidney stone (Male): DJD, Renal failure, Strain, Urolithiasis, Urinary tract infection Penile/Scrotal: N/A Urinary Problem (Male): Urolithiasis, UTI Urinary Problem (Female): N/A X-Ray, Labs, Meds, VS Vital Signs Date Time Temp Pulse Resp B/P (MAP) Pulse Ox O2 Delivery O2 Flow Rate FiO2 03/21/25 12:32 98.0 65 16 146/83 96 98.0 03/21/25 12:32 98.0 65 16 146/83 (104) 96 98.0 Lab Test 03/21/25 13:54 03/21/25 13:40 Range/Units White Blood Count 6.2 4.4-10.8 10^3/uL Red Blood Count 5.60 4.5-5.90 10^6/uL Hemoglobin 16.5 13.5-17.5 g/dL Hematocrit 48.0 41.0-53.0 % Mean Corpuscular Volume 85.7 80.0-100.0 fL Mean Corpuscular Hemoglobin 29.5 28.0-32.0 pg Mean Corpuscular Hemoglobin Concent 34.4 32.0-36.0 g/dL Red Cell Distribution Width 13.6 11.8-14.3 % Platelet Count 147 140-450 10^3/uL Mean Platelet Volume 8.8 6.9-10.8 fL Neutrophils (%) (Auto) 62.0 37.0-80.0 % Lymphocytes (%) (Auto) 25.9 10.0-50.0 % Monocytes (%) (Auto) 7.1 0.0-12.0 % Eosinophils (%) (Auto) 4.5 0.0-7.0 % Basophils (%) (Auto) 0.5 0.0-2.0 % Neutrophils # (Auto) 3.9 1.6-8.6 10 ^3/uL Lymphocytes # (Auto) 1.6 0.4-5.4 10 ^3/uL Monocytes # (Auto) 0.4 0-1.3 10 ^3/uL Eosinophils # (Auto) 0.3 0-0.8 10 ^3/uL Basophils # (Auto) 0 0-0.2 10 ^3/uL Nucleated Red Blood Cells 0.1 % Sodium Level 141 136-145 mmol/L Potassium Level 3.9 3.5-5.1 mmol/L Chloride Level 107 98-107 mmol/L Carbon Dioxide Level 25 20-31 mmol/L Anion Gap 9 5-15 Blood Urea Nitrogen 13 9-23 mg/dL Creatinine 0.94 0.700-1.30 mg/dL Glomerular Filtration Rate Calc 85 >90 mL/min BUN/Creatinine Ratio 13.8 10.0-20.0 Serum Glucose 91 74-106 mg/dL Calcium Level 8.8 8.7-10.4 mg/dL Total Bilirubin 1.2 H 0.2-1.0 mg/dL Aspartate Amino Transferase (AST) 29 13-40 U/L Alanine Aminotransferase (ALT) 34 7-40 U/L Alkaline Phosphatase 77 46-116 U/L Total Protein 7.3 5.7-8.2 g/dL Albumin 4.4 3.2-4.8 g/dL Urine Color Yellow Yellow Urine Clarity Clear Clear Urine pH 5.5 5.0-9.0 Urine Specific [place] 1.022 1.001-1.035 Urine Protein Negative Negative Urine Ketones Negative Negative Urine Blood 1+ H Negative /uL Urine Nitrite Negative Negative Urine Bilirubin Negative Negative Urine Urobilinogen Normal Negative mg/dL Urine Leukocyte Esterase Trace Negative /uL Urine RBC 12 0 - 3 /hpf Urine Microscopic WBC 4 H 0-3 /HPF Urine Squamous Epithelial Cells None seen <5 /hpf Urine Bacteria None seen None Seen /hpf Urine Mucus Few None Seen Urine Glucose Normal Normal mg/dL ORDERING PHYSICIAN: NITESH LOTT PROCEDURE(s): ABPL - CT AB PEL WO CON-NO ORAL OR IV REASON: RIGHT FLANK PAIN WITH BLOOD IN THE URINE ORDER NUMBER(s): [id number], ACCESSION NUMBER(s): [id number] EXAM: CT CT AB PEL WO CON-NO ORAL OR IV History: RIGHT FLANK PAIN WITH BLOOD IN THE URINE Comparison Study: US ABDOMEN LIMITED on DOS: 01/15/25, US LIVER on DOS: 07/05/23, RSHD on DOS: 07/27/21, ABDOMEN COMPLETE SONOGRAM on DOS: 07/28/14 TECHNIQUE: Multidetector spiral CT of the abdomen was performed from lung bases to pubic symphysis. Imaging was performed without IV contrast. Axial, coronal and sagittal multiplanar reformats were obtained from the axial data set by the technologist. Radiation Dose : 1. Abdomen/Pelvis: CTDIvol 6.84 mGy, DLP 361.56 mGy*cm. FINDINGS: Evaluation of solid organs is limited due to lack of intravenous contrast use. Lung Bases: No acute or significant lung base finding. Normal heart size. No pleural or pericardial effusion. Moderate calcification of the aortic root. Liver: The liver is normal in size. No focal lesions. Gallbladder and Biliary Tree: No opaque gallbladder calculi. Spleen: Unremarkable Pancreas: The pancreas is grossly normal in appearance. Adrenal Glands: Unremarkable Kidneys: Multiple low areas of attenuation in the right kidney most likely cysts. Repeat follow-up ultrasound could be performed to confirm this finding. Probable small cysts in the left kidney. No renal calculi. No dilatation of the ureters. Bladder: Thickened bladder wall generalized and circumferential. Cystitis can not be excluded. No bladder calculi. Bowel: The stomach is grossly normal in appearance. Small bowel and colon are normal in caliber and distribution. The appendix is normal. Ascites: Absent Lymphadenopathy: No mesenteric, retroperitoneal or periportal lymphadenopathy. Abdominal Wall and Mesentery: Unremarkable. Vasculature: The visualized abdominal aorta is normal in size and caliber. Evaluation of abdominal and pelvic vessels is limited due to lack of intravenous contrast. Pelvic Organs: Unremarkable Musculoskeletal: Moderate multilevel degenerative disc disease. IMPRESSION: 1. Thickened bladder wall generalized and circumferential. 2. Cystitis can not be excluded. 3. Multiple low areas of attenuation in the right kidney most likely cysts. 4. Repeat follow-up ultrasound could be performed to confirm this finding. 5. Probable small cysts in the left kidney. 6. No renal calculi. 7. No dilatation of the ureters. Normal appendix. No diverticulitis. No abdominal aortic aneurysm. Radiation optimization: All CT scans at this facility use at least one of these dose optimization techniques: automated exposure control mA and/or kV adjustme nt per patient size (includes targeted exams where dose is matched to clinical indication) or iterative reconstruction. ATED BY: ANNA FERRER MD DICTATED DATE/TIME: 03/21/251441 SIGNED BY: ANNA FERRER MD SIGNED DATE/TIME: 03/21/251441 CC: X-Ray, Labs, Meds, VS Comment EXTERNAL MEDICAL RECORDS REVIEWED: [NONE] INDEPENDENT HISTORIANS: [NONE] SOCIAL DETERMINANTS OF HEALTH: [NONE] LABS ORDERED: UA, CBC, BMP REVIEWED AND INTERPRETED RESULTS: BLOOD 1+, LEUKOCYTES TRACE IMAGING ORDERED: CT ABD/PEL TREATMENTS ORDERED: NONE PROCEDURES PERFORMED: NONE CRITICAL CARE TIME: NONE I HAVE DISCUSSED THE PATIENT WITH THE ATTENDING PHYSICIAN DR. BHAKTA AND HE AGREES WITH THE PATIENT'S PLAN OF CARE AND DISPOSITION. BASED ON HISTORY OF PRESENT ILLNESS, AND PHYSICAL EXAM, PATIENT WILL BE DISCHARGED HOME. DISCUSSED PLAN FOR DISCHARGE HOME WITH RX [CIPRO 500 MG]. MEDICATION WARNINGS GIVEN. SHARED DECISION MAKING: DISCUSSED WITH PATIENT THAT THEIR WORKUP WAS NORMAL. PATIENT INSTRUCTED TO FOLLOW UP WITH PRIMARY CARE PROVIDER IN 1-2 DAYS FOR RE- EVALUATION OF SYMPTOMS. PATIENT VERBALIZES UNDERSTANDING TO RETURN TO ED FOR NEW OR WORSENING SYMPTOMS OR IF FOLLOW UP WITH PCP CANNOT BE OBTAINED. PATIENT FEELS COMFORTABLE GOING HOME AT THIS TIME. ALL QUESTIONS ADDRESSED AT TIME OF DISCHARGE. Images Reviewed?: Images reviewed and evaluated by me Time of 1ST Reevaluation: 15:18 Reevaluation 1ST: Improved Patient Education/Counseling: Diagnosis, Treatment, Need For Follow Up Family Education/Counseling: Diagnosis, Treatment, Need For Follow Up Medical Screening: No EMC Exist At This Time SEPSIS Sepsis Screen Date sepsis recognized/suspect: Mar 21, 2025 Time Sepsis recognized/suspect: 1233 Recent Procedure: No On Antibiotic Therapy: No Respiratory Rate >20: No Heart Rate >90: No Temp<36 C (96.8 F) or >38.3 C: No SBP <90 or MAP <65 mmHG: No New Acute Mental Status Change: No Is the patient on CPAP, BIPAP,: No Physician Orders Ct Ab Pel Wo Con-No Oral Or Iv (03/21/25 13:41) Vital Signs Date Time Temp Pulse Resp B/P (MAP) Pulse Ox O2 Delivery O2 Flow Rate FiO2 03/21/25 12:32 98.0 65 16 146/83 96 98.0 03/21/25 12:32 98.0 65 16 146/83 (104) 96 98.0 Laboratory Tests Test 03/21/25 13:54 White Blood Count 6.2 10^3/uL (4.4-10.8) Departure 1 Departure Time of Disposition: 15:19 Impression: Primary Impression: Acute cystitis Qualified Codes: N30.01 - Acute cystitis with hematuria Additional Impression: Cyst of right kidney Disposition: HOME / SELF CARE / HOMELESS Condition: Stable Additional Instructions: FOLLOW-UP WITH PCP IN 1 TO 2 DAYS. TAKE MEDICATIONS PRESCRIBED. RETURN TO ED FOR ANY NEW OR WORSENING SYMPTOMS. e-Prescriptions Ciprofloxacin Hcl (Cipro) 500 Mg Tab 1 TAB PO BID, #20 TAB Prov: NITESH LOTT 03/21/25 Discharged With: Self Critical Care Note Critical Care Time?: No Stability Stability form required: No I personally scribed for NITESH LOTT ([email or web address]) on 03/21/25 at 13:43. Electronically submitted by Karlo Wilkerson ([facility]). I personally scribed for NITESH LOTT ([email or web address]) on 03/21/25 at 14:58. Electronically submitted by Karlo Wilkerson ([facility]). I personally scribed for NITESH LOTT ([email or web address]) on 03/21/25 at 15:09. Electronically submitted by Karlo Wilkerson ([facility]). NITESH LOTT Mar 21, 2025 13:43
[2025-03-21 14:27] LABS: Urine Protein, UAD Negative (Negative)
[2025-03-21 14:31] LABS: Hematocrit 48.0 % (41.0-53.0); Hemoglobin 16.5 g/dL (13.5-17.5); Mean Corpuscular Hemoglobin 29.5 pg (28.0-32.0); Mean Corpuscular Volume 85.7 fL (80.0-100.0); Nucleated Red Blood Cells % 0.1 %
--- NOTE | 2025-03-21 14:44 | DVH ---
EXAM: CT CT AB PEL WO CON-NO ORAL OR IV History: RIGHT FLANK PAIN WITH BLOOD IN THE URINE Comparison Study: US ABDOMEN LIMITED on DOS: 01/15/25, US LIVER on DOS: 07/05/23, RSHD on DOS: 07/27/21, ABDOMEN COMPLETE SONOGRAM on DOS: 07/28/14 TECHNIQUE: Multidetector spiral CT of the abdomen was performed from lung bases to pubic symphysis. Imaging was performed without IV contrast. Axial, coronal and sagittal multiplanar reformats were obtained from the axial data set by the technologist. Radiation Dose : 1. Abdomen/Pelvis: CTDIvol 6.84 mGy, DLP 361.56 mGy*cm. FINDINGS: Evaluation of solid organs is limited due to lack of intravenous contrast use. Lung Bases: No acute or significant lung base finding. Normal heart size. No pleural or pericardial effusion. Moderate calcification of the aortic root. Liver: The liver is normal in size. No focal lesions. Gallbladder and Biliary Tree: No opaque gallbladder calculi. Spleen: Unremarkable Pancreas: The pancreas is grossly normal in appearance. Adrenal Glands: Unremarkable Kidneys: Multiple low areas of attenuation in the right kidney most likely cysts. Repeat follow-up ultrasound could be performed to confirm this finding. Probable small cysts in the left kidney. No renal calculi. No dilatation of the ureters. Bladder: Thickened bladder wall generalized and circumferential. Cystitis can not be excluded. No bladder calculi. Bowel: The stomach is grossly normal in appearance. Small bowel and colon are normal in caliber and distribution. The appendix is normal. Ascites: Absent Lymphadenopathy: No mesenteric, retroperitoneal or periportal lymphadenopathy. Abdominal Wall and Mesentery: Unremarkable. Vasculature: The visualized abdominal aorta is normal in size and caliber. Evaluation of abdominal and pelvic vessels is limited due to lack of intravenous contrast. Pelvic Organs: Unremarkable Musculoskeletal: Moderate multilevel degenerative disc disease. IMPRESSION: 1. Thickened bladder wall generalized and circumferential. 2. Cystitis can not be excluded. 3. Multiple low areas of attenuation in the right kidney most likely cysts. 4. Repeat follow-up ultrasound could be performed to confirm this finding. 5. Probable small cysts in the left kidney. 6. No renal calculi. 7. No dilatation of the ureters. Normal appendix. No diverticulitis. No abdominal aortic aneurysm. Radiation optimization: All CT scans at this facility use at least one of these dose optimization techniques: automated exposure control mA and/or kV adjustment per patient size (includes targeted exams where dose is matched to clinical indication) or iterative reconstruction.
[2025-03-21 14:52] LABS: Alanine Aminotransferase 34 U/L (7-40); Albumin 4.4 g/dL (3.2-4.8); Alkaline Phosphatase 77 U/L (46-116); Anion Gap 9 (5-15); BUN/Creatinine Ratio 13.8 (10.0-20.0); Blood Urea Nitrogen 13 mg/dL (9-23); Calcium 8.8 mg/dL (8.7-10.4); Carbon Dioxide 25 mmol/L (20-31); Glucose 91 mg/dL (74-106); Potassium 3.9 mmol/L (3.5-5.1); Sodium 141 mmol/L (136-145); Total Protein 7.3 g/dL (5.7-8.2)
[2025-03-21 14:53] LABS: Bilirubin, Total 1.2 mg/dL (0.2-1.0)
[2025-03-21 14:56] LABS: Chloride 107 mmol/L (98-107)
[2025-03-21] MEDS ORDERED: CIPR-173 PO (15:17)
== END 2025-03-21 15:28 | disposition home or self-care (01) ==
LOC: ER 12:22
DX: N30.01 Acute cystitis with hematuria (principal); N28.1 Cyst of kidney, acquired; Z79.899 Other long term (current) drug therapy; Z86.73 Personal history of transient ischemic attack (TIA), and cerebral infarction without residual deficits
CPT/HCPCS: 36415; 74176; 80053; 81001; 85025